=== PATIENT | female | born 2000 | race Caucasian/White ===

== ENCOUNTER 2023-08-23 01:13 | Emergency (ER) | payer BC, OTHER, SELFPAY ==
--- NOTE | ~2023-08-23 | CT_ITS ---
Non-contrast CT scan of the Abdomen and Pelvis Clinical indication: Left flank pain Technique: 2.5 mm axial scans were obtained through the abdomen and pelvis without intravenous or or al contrast. Dose reduction technique was used on this scan by utilizing automated exposure control a nd iterative reconstruction technique. The dose-length product (DLP) was 1801.39 mGy-cm. Findings: Images through the lung bases reveal no abnormalities. There is no evidence of renal or ureteral calculi. The kidneys and the ureters are nondilated. The liver, spleen, pancreas, gallbladder, and adrenals appear normal. There is no aortic aneurysm. There is no evidence of bowel obstruction. Images through the pelvis were performed. There is no evidence of ascites or lymphadenopathy. Urinary bladder unremarkable. No pelvic mass evident. Impression: No significant abnormality seen. Reviewed, dictated and finalized at [facility]. TECHNICIAN Impression: No significant abnormality seen.
[2023-08-23 01:34] VITALS: BP 153/83; PULSE 87; RESP 15; TEMP 36.9; O2SAT 99
[2023-08-23 03:40] LABS: Appearance Urine Cloudy (Clear); Bacteria Urine 2+ /hpf; Bilirubin Urine Negative (Negative); Blood Urine Negative (Negative); Color Urine Yellow (Yellow); Glucose Urine UA Negative (Negative); Ketones Urine Trace mg/dL (Negative); Leukocyte Esterase Ur Trace LEU/UL (Negative); Nitrate Urine Negative (Negative); Non Pathogenic Casts 0-2; Protein Urine Negative (Negative); Specific Grav Ur 1.031 (1.001-1.035); Squamous Epithelial Cell Urine Few /hpf (Few); pH Urine 5.5 (5.0-9.0)
[2023-08-23 03:51] LABS: Add Urine Microscopic? YES
[2023-08-23] MEDS: ONDANSETRON INJ 4 MG/2 ML VIAL IV PUSH (04:04)
[2023-08-23] MEDS: MORPHINE SULFATE (*CRX) 4 MG/ML INJ IV PUSH (04:04)
[2023-08-23] MEDS: SODIUM CHLORIDE 0.9% IV 1,000 ML 999 ML IV CONT (04:04)
[2023-08-23 04:12] LABS: Basophils Absolute Auto 0.1 K/mm3 (0.0-0.1); Basophils Percent Auto 0.7 % (0.2-1.2); Eosinophils Absolute Auto 0.2 K/mm3 (0-0.3); Eosinophils Percent Auto 2.2 % (0-4.4); Immature Granulocyte Absolute 0.02 K/mm3 (0.00-0.031); Immature Granulocyte Percent A 0.2 % (0-0.5); Lymphocytes Absolute Auto 3.27 K/mm3 (0.9-3.2); Lymphocytes Percent Auto 39.4 % (18.3-44.2); Mean Corpuscular HGB Conc 31.7 g/dl (32-36); Mean Corpuscular Hemoglobin 29.8 pg (26-34); Mean Platelet Volume 10.8 fl (7.4-10.4); Monocytes Absolute Auto 0.8 K/mm3 (0.1-0.6); Monocytes Percent Auto 9.3 % (2.6-8.5); Neutrophils Percent Auto 48.2 % (45.5-73.1); Platelet Count Result 306 k/mm3 (150-375); Red Blood Count 4.36 M/mm3 (4.2-5.4); Red Cell Distribution Width 13.7 % (11.5-14.5); White Blood Count 8.3 K/mm3 (4.5-10.0)
[2023-08-23 04:25] LABS: Alanine Aminotransferase 20 U/L (6-35); Albumin Level 4.5 g/dL (3.5-5.1); Alkaline Phosphatase 58 U/L (38-126); Anion Gap 10 mmol/L (8-16); Aspartate Amino Transferase 24 U/L (14-36); Bilirubin,Total 0.5 mg/dL (0.2-1.3); Blood Urea Nitrogen 17 mg/dL (7-17); Calcium 9.5 mg/dL (8.4-10.2); Carbon Dioxide 25 mmol/L (22-30); Chloride 104 mmol/L (98-107); Estimated CRCL calculation 153 ml/min; Estimated Glomerular Filt Rate > 60; Glucose 85 mg/dL (65-110); Lipase 99 U/L (23-300); Potassium 4.2 mmol/L (3.4-5.0); Sodium 139 mmol/L (137-145)
--- NOTE | 2023-08-23 05:12 | ED.GENADULT ---
HPI - General Adult General Chief complaint: Back Pain/Injury Stated complaint: low back pain Time Seen by Provider: 08/23/23 02:52 History of Present Illness HPI narrative: Patient is a 22-year-old female presents emergency department chief complaint of left flank pain that radiates to her hip. Patient reports that she normally has back pain but this is different. The patient denies bowel or bladder symptoms the patient denies fever denies history of kidney stones. Related Data Allergies Allergy/AdvReac Type Severity Reaction Status Date / Time No Known Allergies Allergy Verified 08/23/23 04:03 Review of Systems Review of Systems: A 10 system review of systems was completed on the patient and is negative except for what is stated in the HPI. Nursing and ancillary documentation was reviewed. Exam Narrative: GENERAL: Well-appearing, well-nourished, and in no acute distress. HEAD: Normocephalic, atraumatic. EYES: PERRLA and EOMI. ENT: Nares clear, no rhinorrhea or epistaxis. Mucous membranes moist. NECK: Supple. CHEST: Clear to auscultation. No respiratory distress. HEART: Regular rate and rhythm. No murmur heard. Normal peripheral pulses. ABDOMEN: Soft, nontender, nondistended, normal active bowel sounds. EXTREMITIES: Normal range of motion. No edema. SKIN: Warm, dry, no rash. NEURO: No focal deficits. Alert and oriented x3. PSYCH: Normal mood and affect. Course Vital Signs Vital signs: Vital Signs Temperature 36.9 C 08/23/23 01:34 Pulse Rate 87 08/23/23 01:34 Respiratory Rate 15 08/23/23 01:34 Blood Pressure 153/83 H 08/23/23 01:34 Pulse Oximetry 99 08/23/23 01:34 Oxygen Delivery Room Air 08/23/23 01:34 Temperature 36.9 C 08/23/23 01:34 Pulse Rate 87 08/23/23 01:34 Respiratory Rate 15 08/23/23 01:34 Blood Pressure 153/83 H 08/23/23 01:34 Pulse Oximetry 99 08/23/23 01:34 Oxygen Delivery Room Air 08/23/23 01:34 Medical Decision Making [facility] Narrative Medical decision making narrative: Differential diagnosis includes ureterolithiasis, UTI, sciatica, back pain Laboratory studies were obtained which showed normal CBC normal CMP urinalysis showed 6-10 red blood cells and 2+ bacteria Patient was started on oral antibiotics patient will also be treated for musculoskeletal back pain. CT scan showed no acute abnormality Vital Signs Vital Signs: Vital Signs Temperature 36.9 C 08/23/23 01:34 Pulse Rate 87 08/23/23 01:34 Respiratory Rate 15 08/23/23 01:34 Blood Pressure 153/83 H 08/23/23 01:34 Pulse Oximetry 99 08/23/23 01:34 Oxygen Delivery Room Air 08/23/23 01:34 Temperature 36.9 C 08/23/23 01:34 Pulse Rate 87 08/23/23 01:34 Respiratory Rate 15 08/23/23 01:34 Blood Pressure 153/83 H 08/23/23 01:34 Pulse Oximetry 99 08/23/23 01:34 Oxygen Delivery Room Air 08/23/23 01:34 Lab Data 08/23/23 04:03 08/23/23 04:03 Labs: Lab Results 08/23/23 08/23/23 Range/Units 03:29 04:03 WBC 8.3 (4.5-10.0) K/mm3 RBC 4.36 (4.2-5.4) M/mm3 Hgb 13.0 (12.0-15.0) g/dL Hct 41.0 (37.0-47.0) % MCV 94.0 (80-100) fl MCH 29.8 (26-34) pg MCHC 31.7 L (32-36) g/dl RDW 13.7 (11.5-14.5) % Plt Count 306 (150-375) k/mm3 MPV 10.8 H (7.4-10.4) fl Immature Gran % (Auto) 0.2 (0-0.5) % Neut % (Auto) 48.2 (45.5-73.1) % Lymph % (Auto) 39.4 (18.3-44.2) % [place] % (Auto) 9.3 H (2.6-8.5) % Eos % (Auto) 2.2 (0-4.4) % Baso % (Auto) 0.7 (0.2-1.2) % Lymph # (Auto) 3.27 H (0.9-3.2) K/mm3 [place] # (Auto) 0.8 H (0.1-0.6) K/mm3 Eos # (Auto) 0.2 (0-0.3) K/mm3 Baso # (Auto) 0.1 (0.0-0.1) K/mm3 Abs Immat Gran (auto) 0.02 (0.00-0.031) K/mm3 Absolute Neuts (auto) 4.0 (1.3-6.7) K/mm3 Absolute Nucleated RBC 0.0 (0.0-0.012) K/mm3 Nucleated RBC % 0.0 (0.0-0.2) % Sodium 139 (137-145) mmol/L Potassium 4.2 (3.4-5.0) mmol/L C
[2023-08-23] MEDS: CEPHALEXIN 500 MG CAPSULE PO (05:21)
[2023-08-23] MEDS: KETOROLAC 30 MG/ML VIAL (*BKC) IV PUSH (05:21)
[2023-08-23 05:25] VITALS: BP 130/75; PULSE 68; RESP 17; TEMP 36.7; O2SAT 100
== END 2023-08-23 05:26 | disposition home or self-care (01) ==
PROVIDERS: Emergency Provider Emergency Medicine
DX: N39.0 Urinary tract infection, site not specified (principal)
CPT/HCPCS: 36415; 74176; 80053; 81001; 81025; 83690; 85025; 87086; 87088; 96361; 96374; 96375; 99284; A9270; J1885; J2270; J2405; J7030